=== PATIENT | male | born 1960 | race Caucasian/White ===

== ENCOUNTER 2022-11-14 18:56 | Emergency (ER) | payer MEDICARE ==
[2022-11-14 20:30] LABS: #Basophils 0.1 10x3/uL (0.0-0.2); #Eosinphils 0.4 10x3/uL (0.0-0.5); #Monocytes 0.9 10x3/uL (0.0-1.1); #Neutrophils 11.2 10x3/uL (1.5-8.4); %Basophils 0.5 % (0.0-2.0); %Eosinophils 2.8 % (0.0-6.0); %Lymphocytes 15.4 % (18.0-47.0); %Monocytes 5.8 % (0.0-10.0); %Neutrophils 75.2 % (40.0-75.0); Hemoglobin 10.4 g/dL (13.5-17.5); Mean Corpuscular HGB CONC 31.5 g/dL (32.0-36.0); Mean Corpuscular Hemoglobin 27.4 pg (27.0-33.0); Mean Corpuscular Volume 86.8 fl (81.2-95.1); Mean Platelet Volume 10.1 fl (7.4-10.4); Platelet Count 369 10x3/uL (150-450); RBC Distribution Width 13.9 % (11.5-14.5); White Blood Cell (WBC) Count 14.9 10x3/uL (3.5-10.5)
[2022-11-14 20:45] LABS: ALT (SGPT) 20 U/L (8-55); AST (SGOT) 23 U/L (5-34); Albumin 3.4 g/dL (3.4-4.8); Alkaline Phosphatase 122 U/L (40-110); Anion Gap 16 mmol/L (10-20); BUN (Urea Nitrogen) 37 mg/dL (8.4-25.7); Bilirubin, Total 0.3 mg/dL (0.2-1.2); Calc. Creatinine Clearance 0 mL/min (70-130); Calcium 9.4 mg/dL (7.8-10.44); Carbon Dioxide 23 mmol/L (23-31); Chloride 102 mmol/L (98-107); Estimated GFR 40; Glucose 269 mg/dL (80-115); Potassium 4.6 mmol/L (3.5-5.1); Protein, Total 6.4 g/dL (5.8-8.1); Sodium 136 mmol/L (136-145)
== END 2022-11-14 22:16 | disposition home or self-care (01) ==
LOC: CSHERS 18:56
DX: S91.001A Unspecified open wound, right ankle, initial encounter (principal); S91.002A Unspecified open wound, left ankle, initial encounter; S91.301A Unspecified open wound, right foot, initial encounter; S91.302A Unspecified open wound, left foot, initial encounter; L03.116 Cellulitis of left lower limb; X58.XXXA Exposure to other specified factors, initial encounter
CPT/HCPCS: 36415; 80053; 83605; 85025

== ENCOUNTER 2023-01-14 18:59 | Inpatient (IN) | payer MEDICARE, OTHER ==
[2023-01-14] MEDS ORDERED: Vancomycin 1 GM VIAL ONE (19:26)
[2023-01-14] MEDS ORDERED: Acetaminophen 500 MG TAB ONE (19:26)
[2023-01-14] MEDS ORDERED: Cefepime 2 GM VIAL ONE ×2 (19:27)
[2023-01-14 19:38] LABS: #Monocytes 0.8 10x3/uL (0.0-1.1); #Neutrophils 17.1 10x3/uL (1.5-8.4); %Basophils 0.2 % (0.0-2.0); %Eosinophils 0.1 % (0.0-6.0); %Lymphocytes 5.1 % (18.0-47.0); %Monocytes 4.1 % (0.0-10.0); %Neutrophils 89.8 % (40.0-75.0); Hemoglobin 9.1 g/dL (13.5-17.5); Mean Corpuscular Hemoglobin 26.8 pg (27.0-33.0); Mean Corpuscular Volume 81.2 fl (81.2-95.1); Mean Platelet Volume 9.4 fl (7.4-10.4); Platelet Count 343 10x3/uL (150-450); RBC Distribution Width 13.7 % (11.5-14.5); White Blood Cell (WBC) Count 19.1 10x3/uL (3.5-10.5)
[2023-01-14 19:41] LABS: ALT (SGPT) 8 U/L (8-55); AST (SGOT) 16 U/L (5-34); Albumin 2.5 g/dL (3.4-4.8); Alkaline Phosphatase 104 U/L (40-110); Anion Gap 13 mmol/L (10-20); BUN (Urea Nitrogen) 29 mg/dL (8.4-25.7); Bilirubin, Total 0.2 mg/dL (0.2-1.2); Calc. Creatinine Clearance 0 mL/min (70-130); Calcium 9.6 mg/dL (7.8-10.44); Carbon Dioxide 21 mmol/L (23-31); Chloride 103 mmol/L (98-107); Estimated GFR 66; Globulin 3.3 g/dL (2.4-3.5); Glucose 231 mg/dL (80-115); Magnesium 1.5 mg/dL (1.6-2.6); Potassium 3.4 mmol/L (3.5-5.1); Protein, Total 5.8 g/dL (5.8-8.1); Sodium 134 mmol/L (136-145)
[2023-01-15] MEDS ORDERED: Dextrose 5% in Water 1,000 ML IV PRN (00:20)
[2023-01-15] MEDS ORDERED: Glucagon 1 MG/ML KIT IM PRN (00:20)
[2023-01-15] MEDS ORDERED: Dextrose 50% Abboject 50 ML SYRINGE SLOW IVP PRN (00:20)
[2023-01-15] MEDS ORDERED: Potassium Chloride 20 MEQ TAB PO SCH ×2 (00:30→15:00)
[2023-01-15] MEDS ORDERED: Sodium Chloride 0.9% 1,000 ML IV SCH (00:30)
[2023-01-15] MEDS ORDERED: Potassium Chloride 20 MEQ TAB ONE ×2 (00:40→14:35)
[2023-01-15] MEDS ORDERED: Magnesium 2 GM/50 ML BAG (IN WATER) ONE ×2 (00:40→17:43)
[2023-01-15 02:01] LABS: Bilirubin Neg (Negative); Blood, Urine Negative (Negative); Clarity Clear (Clear); Glucose, Urine (Dipstick) 250 mg/dL (Negative); Ketone, Urine 5 mg/dL (Negative); Leukocyte Negative (Negative); Nitrite Negative (Negative); Protein, Urine (Dipstick) 100 mg/dl (Neg-Trace); Urobilinogen Normal mg/dL (Less than 2)
[2023-01-15 02:07] LABS: Bacteria/HPF None Seen HPF (None Seen); CAUTI Indications for Culture Fever or rigors; RBC/HPF 0-3 HPF (0-3); Squamous Epithelial 0-3 HPF (0-3); WBC/HPF 0-3 HPF (0-3)
[2023-01-15 02:08] LABS: Urine Culture Reflex No No
[2023-01-15 03:50] LABS: Hemoglobin 9.1 g/dL (13.5-17.5); Mean Corpuscular HGB CONC 32.6 g/dL (32.0-36.0); Mean Corpuscular Hemoglobin 26.5 pg (27.0-33.0); Mean Corpuscular Volume 81.3 fl (81.2-95.1); Mean Platelet Volume 9.1 fl (7.4-10.4); Platelet Count 372 10x3/uL (150-450); RBC Distribution Width 13.8 % (11.5-14.5); Red Blood Cell (RBC) Count 3.43 10x6/uL (4.32-5.72); White Blood Cell (WBC) Count 20.8 10x3/uL (3.5-10.5)
[2023-01-15 03:57] LABS: Anion Gap 14 mmol/L (10-20); BUN (Urea Nitrogen) 25 mg/dL (8.4-25.7); Calc. Creatinine Clearance 98 mL/min (70-130); Calcium 9.6 mg/dL (7.8-10.44); Carbon Dioxide 21 mmol/L (23-31); Chloride 102 mmol/L (98-107); Estimated GFR 81; Glucose 210 mg/dL (80-115); Magnesium 1.8 mg/dL (1.6-2.6); Potassium 3.4 mmol/L (3.5-5.1); Sodium 134 mmol/L (136-145)
[2023-01-15 04:18] LABS: MDiff Complete? YES
[2023-01-15 04:21] LABS: Band 22 % (5-11); Eosinophils 2 % (0-10); Lymphocytes 4 % (21-51); Monocytes 1 % (0-10); Neutrophil 71 % (42-75)
[2023-01-15 04:22] LABS: Platelet Adequacy Comment Appears Adequate; RBC Morph Comment Within Normal Limits
[2023-01-15] MEDS ORDERED: Insulin Regular 300 UNITS/3 ML VIAL ONE ×2 (07:56→17:32)
[2023-01-15] MEDS ORDERED: Cefepime 2 GM VIAL ONE (07:56)
[2023-01-15] MEDS ORDERED: Vancomycin 1 GM VIAL ONE (07:56)
[2023-01-15] MEDS: HumaLOG 300 UNITS/3 ML VIAL SC PRN ×2 (08:00→18:04)
[2023-01-15] MEDS: Cefepime 2 GM in Sodium Chloride 0.9% 100 ML IVPB SCH ×2 (08:00→21:24)
[2023-01-15] MEDS: Vancomycin HCl 1 GM in Sodium Chloride 0.9% 250 ML 250 ML IVPB SCH ×2 (08:00→21:24)
[2023-01-15] MEDS ORDERED: Heparin 5,000 UNITS/ML VIAL SC SCH (09:00)
[2023-01-15] MEDS ORDERED: Gabapentin 300 MG CAP ONE ×2 (09:58→17:45)
[2023-01-15] MEDS ORDERED: oxyCODONE 5 MG TAB ONE (09:58)
[2023-01-15] MEDS ORDERED: Heparin 5,000 UNITS/ML VIAL ONE (09:59)
[2023-01-15] MEDS: oxyCODONE 5 MG TAB PO PRN ×2 (10:00→21:23)
[2023-01-15] MEDS: Gabapentin 300 MG CAP PO SCH ×3 (10:04→21:22)
[2023-01-15] MEDS ORDERED: Magnevist 469MG/ML 20 ML VIAL ONE (11:24)
[2023-01-15] MEDS ORDERED: Electrolyte Replacement Protocol 1 EACH FS SCH (12:00)
[2023-01-15] MEDS ORDERED: Magnesium 2 GM/50 ML(in water) 2 GM in Premix Bag 1 BAG IVPB SCH (15:00)
[2023-01-15] MEDS: Lactated Ringer's 1,000 ML IV SCH (18:02)
[2023-01-15] MEDS ORDERED: Acetaminophen 325 MG TAB ONE (19:12)
[2023-01-15] MEDS: Acetaminophen 325 MG TAB PO PRN (19:43)
[2023-01-15 20:14] LABS: Potassium 3.8 mmol/L (3.5-5.1)
[2023-01-16] MEDS: Lactated Ringer's 1,000 ML IV SCH (04:50)
[2023-01-16 05:17] LABS: #Eosinphils 0.1 10x3/uL (0.0-0.5); #Monocytes 0.8 10x3/uL (0.0-1.1); #Neutrophils 13.1 10x3/uL (1.5-8.4); %Basophils 0.2 % (0.0-2.0); %Eosinophils 0.8 % (0.0-6.0); %Lymphocytes 9.6 % (18.0-47.0); %Monocytes 5.1 % (0.0-10.0); %Neutrophils 83.1 % (40.0-75.0); Hemoglobin 8.9 g/dL (13.5-17.5); Mean Corpuscular HGB CONC 33.3 g/dL (32.0-36.0); Mean Corpuscular Volume 80.9 fl (81.2-95.1); Mean Platelet Volume 9.2 fl (7.4-10.4); Platelet Count 341 10x3/uL (150-450); White Blood Cell (WBC) Count 15.8 10x3/uL (3.5-10.5)
[2023-01-16] MEDS: oxyCODONE 5 MG TAB PO PRN ×4 (05:17→21:13)
[2023-01-16 05:32] LABS: ALT (SGPT) 7 U/L (8-55); AST (SGOT) 12 U/L (5-34); Albumin 2.3 g/dL (3.4-4.8); Alkaline Phosphatase 111 U/L (40-110); Bilirubin, Direct 0.1 mg/dL (0.1-0.3); Bilirubin, Total 0.2 mg/dL (0.2-1.2); Protein, Total 5.5 g/dL (5.8-8.1)
[2023-01-16 05:36] LABS: Phosphorus 1.9 mg/dL (2.3-4.7)
[2023-01-16 05:38] LABS: ALT (SGPT) 9 U/L (8-55); AST (SGOT) 14 U/L (5-34); Albumin 2.3 g/dL (3.4-4.8); Alkaline Phosphatase 116 U/L (40-110); Anion Gap 13 mmol/L (10-20); BUN (Urea Nitrogen) 18 mg/dL (8.4-25.7); Bilirubin, Total 0.2 mg/dL (0.2-1.2); Calc. Creatinine Clearance 102 mL/min (70-130); Calcium 8.3 mg/dL (7.8-10.44); Carbon Dioxide 20 mmol/L (23-31); Chloride 102 mmol/L (98-107); Estimated GFR 85; Globulin 3.2 g/dL (2.4-3.5); Glucose 258 mg/dL (80-115); Iron 18 ug/dL (65-175); Iron Binding Capacity, Total 104 mcg/dL (261-462); Magnesium 1.8 mg/dL (1.6-2.6); Potassium 3.9 mmol/L (3.5-5.1); Protein, Total 5.5 g/dL (5.8-8.1); Sodium 131 mmol/L (136-145)
[2023-01-16 06:43] VITALS: BMI 33.3
[2023-01-16 07:43] LABS: Vancomycin, Trough 15.8 ug/mL
[2023-01-16] MEDS: Cefepime 2 GM in Sodium Chloride 0.9% 100 ML IVPB SCH ×2 (08:18→20:01)
[2023-01-16] MEDS ORDERED: Magnesium 2 GM/50 ML(in water) 2 GM in Premix Bag 1 BAG IVPB SCH (09:00)
[2023-01-16] MEDS: Vancomycin HCl 1 GM in Sodium Chloride 0.9% 250 ML 250 ML IVPB SCH ×2 (09:44→20:57)
[2023-01-16] MEDS: Gabapentin 300 MG CAP PO SCH ×3 (09:46→21:12)
[2023-01-16] MEDS ORDERED: Aspirin 81 mg Enteric Coated Tablet PO SCH (10:00)
[2023-01-16] MEDS ORDERED: Lantus 1000 UNITS/10 ML VIAL SC SCH (11:00)
[2023-01-16] MEDS ORDERED: Iopamidol 370 76% 150 ML VIAL FS ONE (11:25)
[2023-01-16] MEDS: PHOS-NAK 1 PKT PACK PO SCH ×2 (12:44→15:22)
[2023-01-16 12:53] LABS: Hemoglobin A1c 9.7 % (4.0-6.0)
[2023-01-16] MEDS: HumaLOG 300 UNITS/3 ML VIAL SC PRN ×3 (15:30→23:19)
[2023-01-16] MEDS: metroNIDAZOLE 500 MG in Premix Bag 1 BAG IVPB SCH ×2 (15:30→22:01)
[2023-01-16] MEDS ORDERED: Iron, Sodium Ferric Gluconate 125 MG in Sodium Chloride 0.9% 100 ML IVPB SCH (17:30)
[2023-01-16] MEDS: Atorvastatin Calcium 40 MG TAB PO SCH (21:13)
[2023-01-16] MEDS: Famotidine 20 MG TAB PO SCH (21:14)
[2023-01-17] MEDS: oxyCODONE 5 MG TAB PO PRN ×3 (04:29→20:02)
[2023-01-17 05:00] LABS: #Basophils 0.1 10x3/uL (0.0-0.2); #Eosinphils 0.1 10x3/uL (0.0-0.5); #Monocytes 0.9 10x3/uL (0.0-1.1); #Neutrophils 13.8 10x3/uL (1.5-8.4); %Basophils 0.3 % (0.0-2.0); %Eosinophils 0.7 % (0.0-6.0); %Lymphocytes 10.5 % (18.0-47.0); %Monocytes 5.5 % (0.0-10.0); %Neutrophils 81.8 % (40.0-75.0); Hemoglobin 9.3 g/dL (13.5-17.5); Mean Corpuscular HGB CONC 32.3 g/dL (32.0-36.0); Mean Corpuscular Hemoglobin 26.3 pg (27.0-33.0); Mean Corpuscular Volume 81.6 fl (81.2-95.1); Mean Platelet Volume 9.2 fl (7.4-10.4); Platelet Count 336 10x3/uL (150-450); RBC Distribution Width 14.1 % (11.5-14.5); Red Blood Cell (RBC) Count 3.53 10x6/uL (4.32-5.72); White Blood Cell (WBC) Count 16.9 10x3/uL (3.5-10.5)
[2023-01-17 05:11] LABS: ALT (SGPT) 7 U/L (8-55); AST (SGOT) 11 U/L (5-34); Albumin 2.2 g/dL (3.4-4.8); Alkaline Phosphatase 100 U/L (40-110); Anion Gap 12 mmol/L (10-20); BUN (Urea Nitrogen) 16 mg/dL (8.4-25.7); Bilirubin, Total 0.2 mg/dL (0.2-1.2); Calc. Creatinine Clearance 116 mL/min (70-130); Calcium 8.2 mg/dL (7.8-10.44); Carbon Dioxide 23 mmol/L (23-31); Chloride 97 mmol/L (98-107); Estimated GFR 88; Globulin 3.3 g/dL (2.4-3.5); Glucose 217 mg/dL (80-115); Magnesium 1.8 mg/dL (1.6-2.6); Potassium 3.7 mmol/L (3.5-5.1); Protein, Total 5.5 g/dL (5.8-8.1); Sodium 128 mmol/L (136-145)
[2023-01-17 05:13] LABS: Cholesterol 68 mg/dl (< 200 Desired); HDL Cholesterol 17 mg/dL (>60 Neg Risk); LDL Cholesterol, Calculated 30 mg/dL; Phosphorus 2.1 mg/dL (2.3-4.7); Triglycerides 107 mg/dL (Less than 150)
[2023-01-17] MEDS: metroNIDAZOLE 500 MG in Premix Bag 1 BAG IVPB SCH (06:08)
[2023-01-17] MEDS: HumaLOG 300 UNITS/3 ML VIAL SC PRN ×3 (06:20→21:46)
[2023-01-17] MEDS: Vancomycin HCl 1 GM in Sodium Chloride 0.9% 250 ML 250 ML IVPB SCH (08:13)
[2023-01-17] MEDS: Cefepime 2 GM in Sodium Chloride 0.9% 100 ML IVPB SCH (08:15)
[2023-01-17] MEDS: Gabapentin 300 MG CAP PO SCH ×3 (08:15→20:03)
[2023-01-17] MEDS: Famotidine 20 MG TAB PO SCH ×2 (08:16→20:03)
[2023-01-17] MEDS: Aspirin 81 mg Enteric Coated Tablet PO SCH (08:16)
[2023-01-17] MEDS ORDERED: Lantus 1000 UNITS/10 ML VIAL SC SCH (09:00)
[2023-01-17] MEDS ORDERED: Magnesium 2 GM/50 ML(in water) 2 GM in Premix Bag 1 BAG IVPB SCH (09:00)
[2023-01-17] MEDS ORDERED: Magnevist 469MG/ML 20 ML VIAL ONE (13:34)
[2023-01-17] MEDS: cefTRIAXone\\ROCEPHIN 2 GM in Sodium Chloride 0.9% 100 ML IVPB SCH (14:00)
[2023-01-17] MEDS: metroNIDAZOLE 500 MG TAB PO SCH ×2 (15:52→20:07)
[2023-01-17] MEDS: Atorvastatin Calcium 40 MG TAB PO SCH (20:02)
[2023-01-17] MEDS: hydrALAZINE 20 MG/ML VIAL SLOW IVP PRN (20:04)
[2023-01-17] MEDS: Lantus 1000 UNITS/10 ML VIAL SC SCH (21:46)
[2023-01-17] MEDS: Acetaminophen 325 MG TAB PO PRN (23:50)
[2023-01-18 04:55] LABS: #Eosinphils 0.1 10x3/uL (0.0-0.5); #Monocytes 1.2 10x3/uL (0.0-1.1); #Neutrophils 16.5 10x3/uL (1.5-8.4); %Basophils 0.2 % (0.0-2.0); %Eosinophils 0.4 % (0.0-6.0); %Lymphocytes 8.8 % (18.0-47.0); %Neutrophils 83.2 % (40.0-75.0); Hemoglobin 8.7 g/dL (13.5-17.5); Mean Corpuscular HGB CONC 33.1 g/dL (32.0-36.0); Mean Corpuscular Hemoglobin 26.6 pg (27.0-33.0); Mean Corpuscular Volume 80.4 fl (81.2-95.1); Mean Platelet Volume 9.1 fl (7.4-10.4); Platelet Count 340 10x3/uL (150-450); Red Blood Cell (RBC) Count 3.27 10x6/uL (4.32-5.72); White Blood Cell (WBC) Count 19.8 10x3/uL (3.5-10.5)
[2023-01-18 05:10] LABS: ALT (SGPT) 7 U/L (8-55); AST (SGOT) 10 U/L (5-34); Albumin 2.1 g/dL (3.4-4.8); Alkaline Phosphatase 106 U/L (40-110); Anion Gap 12 mmol/L (10-20); BUN (Urea Nitrogen) 19 mg/dL (8.4-25.7); Bilirubin, Total Less than 0.2 mg/dL (0.2-1.2); Calc. Creatinine Clearance 104 mL/min (70-130); Carbon Dioxide 23 mmol/L (23-31); Chloride 98 mmol/L (98-107); Estimated GFR 77; Globulin 3.2 g/dL (2.4-3.5); Glucose 240 mg/dL (80-115); Magnesium 1.8 mg/dL (1.6-2.6); Potassium 3.6 mmol/L (3.5-5.1); Protein, Total 5.3 g/dL (5.8-8.1); Sodium 129 mmol/L (136-145)
[2023-01-18] MEDS: Sodium Chloride 0.9% 1,000 ML IV SCH ×2 (08:11→18:23)
[2023-01-18] MEDS ORDERED: Magnesium 2 GM/50 ML(in water) 2 GM in Premix Bag 1 BAG IVPB SCH (09:00)
[2023-01-18] MEDS: Gabapentin 300 MG CAP PO SCH ×3 (09:22→20:50)
[2023-01-18] MEDS: oxyCODONE 5 MG TAB PO PRN (09:22)
[2023-01-18] MEDS: Famotidine 20 MG TAB PO SCH ×2 (09:22→20:51)
[2023-01-18] MEDS: Ferrous Sulfate 325 MG TAB PO SCH (09:22)
[2023-01-18] MEDS: Aspirin 81 mg Enteric Coated Tablet PO SCH (09:23)
[2023-01-18] MEDS: metroNIDAZOLE 500 MG TAB PO SCH (09:26)
[2023-01-18] MEDS ORDERED: Morphine 2 MG/ML VIAL SLOW IVP PRN (10:22)
[2023-01-18] MEDS: cefTRIAXone\\ROCEPHIN 2 GM in Sodium Chloride 0.9% 100 ML IVPB SCH (12:16)
[2023-01-18] MEDS: metroNIDAZOLE 500 MG in Premix Bag 1 BAG IVPB SCH ×2 (14:31→22:05)
[2023-01-18] MEDS: Morphine 4 MG/ML VIAL SLOW IVP PRN ×2 (15:35→20:52)
[2023-01-18] MEDS: HYDROcodone/Acetaminophen 5/325 mg Tablet PO PRN (19:04)
[2023-01-18] MEDS: Atorvastatin Calcium 40 MG TAB PO SCH (20:51)
[2023-01-18] MEDS: Lantus 1000 UNITS/10 ML VIAL SC SCH (20:52)
[2023-01-18] MEDS: HumaLOG 300 UNITS/3 ML VIAL SC PRN (22:05)
[2023-01-19] MEDS: Sodium Chloride 0.9% 1,000 ML IV SCH ×2 (04:00→13:01)
[2023-01-19] MEDS: metroNIDAZOLE 500 MG in Premix Bag 1 BAG IVPB SCH ×3 (05:43→23:42)
[2023-01-19] MEDS: Morphine 4 MG/ML VIAL SLOW IVP PRN ×2 (05:44→12:58)
[2023-01-19 06:06] LABS: Hemoglobin 8.7 g/dL (13.5-17.5); MDiff Complete? YES; Mean Corpuscular HGB CONC 31.9 g/dL (32.0-36.0); Mean Corpuscular Hemoglobin 26.2 pg (27.0-33.0); Mean Corpuscular Volume 82.2 fl (81.2-95.1); Mean Platelet Volume 9.2 fl (7.4-10.4); Platelet Count 385 10x3/uL (150-450); RBC Distribution Width 14.3 % (11.5-14.5); Red Blood Cell (RBC) Count 3.32 10x6/uL (4.32-5.72); White Blood Cell (WBC) Count 20.3 10x3/uL (3.5-10.5)
[2023-01-19 06:24] LABS: ALT (SGPT) 10 U/L (8-55); AST (SGOT) 14 U/L (5-34); Albumin 2.2 g/dL (3.4-4.8); Alkaline Phosphatase 108 U/L (40-110); Anion Gap 11 mmol/L (10-20); BUN (Urea Nitrogen) 17 mg/dL (8.4-25.7); Bilirubin, Total 0.2 mg/dL (0.2-1.2); Calc. Creatinine Clearance 102 mL/min (70-130); Calcium 8.2 mg/dL (7.8-10.44); Carbon Dioxide 24 mmol/L (23-31); Chloride 98 mmol/L (98-107); Estimated GFR 76; Globulin 3.4 g/dL (2.4-3.5); Glucose 214 mg/dL (80-115); Potassium 3.4 mmol/L (3.5-5.1); Protein, Total 5.6 g/dL (5.8-8.1); Sodium 130 mmol/L (136-145)
[2023-01-19 06:30] LABS: Hypochromia SLIGHT = 6-15 cells (100X) (0-5/hpf); Lymphocytes 4 % (21-51); Monocytes 4 % (0-10); Neutrophil 92 % (42-75); Platelet Adequacy Comment Appears Adequate
[2023-01-19] MEDS: HumaLOG 300 UNITS/3 ML VIAL SC PRN ×4 (07:00→21:33)
[2023-01-19] MEDS ORDERED: Potassium Chloride 20 MEQ TAB PO SCH (09:00)
[2023-01-19] MEDS: Aspirin 81 mg Enteric Coated Tablet PO SCH (09:09)
[2023-01-19] MEDS: Gabapentin 300 MG CAP PO SCH ×3 (09:09→21:30)
[2023-01-19] MEDS: HYDROcodone/Acetaminophen 5/325 mg Tablet PO PRN ×3 (09:10→21:31)
[2023-01-19] MEDS: Ferrous Sulfate 325 MG TAB PO SCH (09:11)
[2023-01-19] MEDS: Famotidine 20 MG TAB PO SCH ×2 (09:11→21:30)
[2023-01-19] MEDS: cefTRIAXone\\ROCEPHIN 2 GM in Sodium Chloride 0.9% 100 ML IVPB SCH (13:01)
[2023-01-19 13:16] LABS: Potassium 4.3 mmol/L (3.5-5.1)
[2023-01-19] MEDS: Morphine 2 MG/ML VIAL SLOW IVP PRN (17:19)
[2023-01-19] MEDS: Atorvastatin Calcium 40 MG TAB PO SCH (21:30)
[2023-01-19] MEDS: Lantus 1000 UNITS/10 ML VIAL SC SCH (21:32)
[2023-01-19] MEDS ORDERED: Communication Order-Pharmacy FS SCH (22:00)
[2023-01-20] MEDS: Morphine 2 MG/ML VIAL SLOW IVP PRN ×2 (00:55→17:04)
[2023-01-20] MEDS: Sodium Chloride 0.9% 1,000 ML IV SCH ×4 (02:44→21:14)
[2023-01-20 04:28] LABS: #Basophils 0.1 10x3/uL (0.0-0.2); #Eosinphils 0.1 10x3/uL (0.0-0.5); #Monocytes 1.3 10x3/uL (0.0-1.1); #Neutrophils 13.3 10x3/uL (1.5-8.4); %Basophils 0.3 % (0.0-2.0); %Eosinophils 0.8 % (0.0-6.0); %Lymphocytes 10.1 % (18.0-47.0); %Monocytes 7.8 % (0.0-10.0); %Neutrophils 79.3 % (40.0-75.0); Hemoglobin 8.1 g/dL (13.5-17.5); Mean Corpuscular HGB CONC 32.1 g/dL (32.0-36.0); Mean Corpuscular Hemoglobin 26.2 pg (27.0-33.0); Mean Corpuscular Volume 81.6 fl (81.2-95.1); Mean Platelet Volume 8.7 fl (7.4-10.4); Platelet Count 379 10x3/uL (150-450); RBC Distribution Width 14.2 % (11.5-14.5); Red Blood Cell (RBC) Count 3.09 10x6/uL (4.32-5.72); White Blood Cell (WBC) Count 16.7 10x3/uL (3.5-10.5)
[2023-01-20 04:50] LABS: Phosphorus 2.1 mg/dL (2.3-4.7)
[2023-01-20 04:57] LABS: ALT (SGPT) 9 U/L (8-55); AST (SGOT) 12 U/L (5-34); Albumin 2.1 g/dL (3.4-4.8); Alkaline Phosphatase 107 U/L (40-110); Anion Gap 12 mmol/L (10-20); BUN (Urea Nitrogen) 19 mg/dL (8.4-25.7); Bilirubin, Total Less than 0.2 mg/dL (0.2-1.2); Calc. Creatinine Clearance 113 mL/min (70-130); Carbon Dioxide 24 mmol/L (23-31); Chloride 97 mmol/L (98-107); Estimated GFR 86; Globulin 3.3 g/dL (2.4-3.5); Glucose 225 mg/dL (80-115); Magnesium 1.5 mg/dL (1.6-2.6); Potassium 3.9 mmol/L (3.5-5.1); Protein, Total 5.4 g/dL (5.8-8.1); Sodium 129 mmol/L (136-145)
[2023-01-20] MEDS: metroNIDAZOLE 500 MG in Premix Bag 1 BAG IVPB SCH ×3 (05:41→21:16)
[2023-01-20] MEDS ORDERED: Magnesium 2 GM/50 ML(in water) 2 GM in Premix Bag 1 BAG IVPB SCH (06:00)
[2023-01-20] MEDS ORDERED: Sodium Chloride 0.9% 1,000 ML IV SCH (07:00)
[2023-01-20] MEDS: Ferrous Sulfate 325 MG TAB PO SCH (07:01)
[2023-01-20] MEDS: Aspirin 81 mg Enteric Coated Tablet PO SCH (07:02)
[2023-01-20] MEDS: Famotidine 20 MG TAB PO SCH ×2 (07:02→21:15)
[2023-01-20] MEDS: Gabapentin 300 MG CAP PO SCH ×3 (07:03→21:15)
[2023-01-20] MEDS ORDERED: TICAGRELOR 90 MG TABLET PO SCH (08:00)
[2023-01-20] MEDS ORDERED: Lidocaine 1% (PF) 30 ML VIAL ONE (09:43)
[2023-01-20] MEDS ORDERED: Nitroglycerin 50 MG/250 ML BOT 0 ML ONE (09:43)
[2023-01-20] MEDS ORDERED: Heparin 10,000 UNITS/ 10 ML VIAL ONE (09:44)
[2023-01-20] MEDS ORDERED: Midazolam HCl 2 mg/2 ml Vial ONE ×2 (09:58→11:59)
[2023-01-20] MEDS ORDERED: fentaNYL 50 mcg/mL 1 mL Vial ONE ×3 (09:58→12:09)
[2023-01-20] MEDS ORDERED: Iopamidol 300 61% 100 ML VIAL FS ONE (11:04)
[2023-01-20] MEDS: cefTRIAXone\\ROCEPHIN 2 GM in Sodium Chloride 0.9% 100 ML IVPB SCH (14:23)
[2023-01-20] MEDS: HumaLOG 300 UNITS/3 ML VIAL SC PRN (17:06)
[2023-01-20] MEDS: HYDROcodone/Acetaminophen 5/325 mg Tablet PO PRN ×2 (18:27→21:15)
[2023-01-20] MEDS: Lantus 1000 UNITS/10 ML VIAL SC SCH (21:24)
[2023-01-21] MEDS: HYDROcodone/Acetaminophen 5/325 mg Tablet PO PRN ×3 (04:15→17:52)
[2023-01-21] MEDS: Sodium Chloride 0.9% 1,000 ML IV SCH ×2 (04:18→09:53)
[2023-01-21 04:48] LABS: ALT (SGPT) 8 U/L (8-55); AST (SGOT) 12 U/L (5-34); Albumin 2.2 g/dL (3.4-4.8); Alkaline Phosphatase 105 U/L (40-110); Anion Gap 12 mmol/L (10-20); BUN (Urea Nitrogen) 13 mg/dL (8.4-25.7); Bilirubin, Total 0.2 mg/dL (0.2-1.2); Calc. Creatinine Clearance 117 mL/min (70-130); Calcium 8.1 mg/dL (7.8-10.44); Carbon Dioxide 24 mmol/L (23-31); Chloride 94 mmol/L (98-107); Estimated GFR 89; Globulin 3.6 g/dL (2.4-3.5); Glucose 310 mg/dL (80-115); Magnesium 1.6 mg/dL (1.6-2.6); Potassium 3.9 mmol/L (3.5-5.1); Protein, Total 5.8 g/dL (5.8-8.1); Sodium 126 mmol/L (136-145)
[2023-01-21 04:59] LABS: Hemoglobin 8.4 g/dL (13.5-17.5); Mean Corpuscular HGB CONC 32.4 g/dL (32.0-36.0); Mean Corpuscular Hemoglobin 26.4 pg (27.0-33.0); Mean Corpuscular Volume 81.4 fl (81.2-95.1); Mean Platelet Volume 8.9 fl (7.4-10.4); Platelet Count 503 10x3/uL (150-450); RBC Distribution Width 14.3 % (11.5-14.5); Red Blood Cell (RBC) Count 3.18 10x6/uL (4.32-5.72); White Blood Cell (WBC) Count 21.2 10x3/uL (3.5-10.5)
[2023-01-21 05:32] LABS: MDiff Complete? YES
[2023-01-21 06:22] LABS: Band 2 % (5-11); Lymphocytes 5 % (21-51); Monocytes 2 % (0-10); Neutrophil 91 % (42-75)
[2023-01-21 06:25] LABS: Hypochromia SLIGHT = 6-15 cells (100X) (0-5/hpf); Macrocytosis SLIGHT = 6-15 cells (100X) (0-5/hpf); Microcytosis SLIGHT = 6-15 cells (100X) (0-5/hpf); Ovalocytes SLIGHT = 2-5 cells (100X) (0-1/hpf); Platelet Adequacy Comment Appears Adequate
[2023-01-21] MEDS: metroNIDAZOLE 500 MG in Premix Bag 1 BAG IVPB SCH ×3 (06:45→21:20)
[2023-01-21] MEDS ORDERED: Magnesium 2 GM/50 ML(in water) 2 GM in Premix Bag 1 BAG IVPB SCH (08:00)
[2023-01-21] MEDS: Clopidogrel Bisulfate 75 MG TAB PO SCH (09:54)
[2023-01-21] MEDS: Gabapentin 300 MG CAP PO SCH ×3 (09:54→20:23)
[2023-01-21] MEDS: Aspirin 81 mg Enteric Coated Tablet PO SCH (09:54)
[2023-01-21] MEDS: Famotidine 20 MG TAB PO SCH ×2 (09:55→20:23)
[2023-01-21] MEDS: Ferrous Sulfate 325 MG TAB PO SCH (09:57)
[2023-01-21] MEDS: Morphine 2 MG/ML VIAL SLOW IVP PRN (11:43)
[2023-01-21] MEDS: Acetaminophen 325 MG TAB PO PRN (12:10)
[2023-01-21] MEDS: HumaLOG 300 UNITS/3 ML VIAL SC PRN ×2 (12:11→17:53)
[2023-01-21] MEDS: cefTRIAXone\\ROCEPHIN 2 GM in Sodium Chloride 0.9% 100 ML IVPB SCH (12:16)
[2023-01-21] MEDS: hydrALAZINE 20 MG/ML VIAL SLOW IVP PRN (17:51)
[2023-01-21] MEDS ORDERED: Lantus 1000 UNITS/10 ML VIAL SC SCH (21:00)
[2023-01-22] MEDS: HYDROcodone/Acetaminophen 5/325 mg Tablet PO PRN ×2 (00:11→06:24)
[2023-01-22 04:04] LABS: ALT (SGPT) 8 U/L (8-55); AST (SGOT) 14 U/L (5-34); Albumin 2.1 g/dL (3.4-4.8); Alkaline Phosphatase 99 U/L (40-110); Anion Gap 10 mmol/L (10-20); BUN (Urea Nitrogen) 13 mg/dL (8.4-25.7); Bilirubin, Total 0.2 mg/dL (0.2-1.2); Calc. Creatinine Clearance 123 mL/min (70-130); Calcium 8.2 mg/dL (7.8-10.44); Carbon Dioxide 26 mmol/L (23-31); Chloride 98 mmol/L (98-107); Estimated GFR 95; Globulin 3.5 g/dL (2.4-3.5); Glucose 256 mg/dL (80-115); Protein, Total 5.6 g/dL (5.8-8.1); Sodium 130 mmol/L (136-145)
[2023-01-22 04:10] LABS: #Basophils 0.1 10x3/uL (0.0-0.2); #Eosinphils 0.2 10x3/uL (0.0-0.5); #Monocytes 1.2 10x3/uL (0.0-1.1); #Neutrophils 13.6 10x3/uL (1.5-8.4); %Basophils 0.3 % (0.0-2.0); %Eosinophils 0.9 % (0.0-6.0); %Monocytes 6.8 % (0.0-10.0); %Neutrophils 78.6 % (40.0-75.0); Hemoglobin 7.9 g/dL (13.5-17.5); Mean Corpuscular HGB CONC 32.6 g/dL (32.0-36.0); Mean Corpuscular Hemoglobin 26.9 pg (27.0-33.0); Mean Corpuscular Volume 82.3 fl (81.2-95.1); Mean Platelet Volume 8.7 fl (7.4-10.4); Platelet Count 499 10x3/uL (150-450); RBC Distribution Width 14.4 % (11.5-14.5); Red Blood Cell (RBC) Count 2.94 10x6/uL (4.32-5.72); White Blood Cell (WBC) Count 17.3 10x3/uL (3.5-10.5)
[2023-01-22] MEDS ORDERED: fentaNYL 50 mcg/mL 1 mL Vial ONE (06:41)
[2023-01-22] MEDS ORDERED: PROPOFOL 20 ML ONE (06:41)
[2023-01-22] MEDS ORDERED: Lidocaine 1% PF 5 ML VIAL ONE (06:41)
[2023-01-22] MEDS: metroNIDAZOLE 500 MG in Premix Bag 1 BAG IVPB SCH ×3 (07:12→22:12)
[2023-01-22] MEDS ORDERED: Vasopressin 20 UNITS/ML VIAL ONE (07:18)
[2023-01-22] MEDS ORDERED: HYDROmorphone 0.5 MG/0.5 ML SYRINGE ONE ×4 (07:18→10:46)
[2023-01-22] MEDS ORDERED: Phenylephrine 10 MG/ML VIAL ONE (07:18)
[2023-01-22] MEDS: Ferrous Sulfate 325 MG TAB PO SCH (08:00)
[2023-01-22] MEDS ORDERED: Dexamethasone 4 mg/ml Vial ONE (08:13)
[2023-01-22] MEDS ORDERED: Ondansetron PF 4 MG/2 ML Vial ONE (08:13)
[2023-01-22] MEDS ORDERED: Fentanyl 250 MCG/5 ML VIAL ONE (08:44)
[2023-01-22] MEDS: Gabapentin 300 MG CAP PO SCH ×3 (09:00→22:11)
[2023-01-22] MEDS: Aspirin 81 mg Enteric Coated Tablet PO SCH (09:00)
[2023-01-22] MEDS: Famotidine 20 MG TAB PO SCH ×2 (09:00→22:11)
[2023-01-22] MEDS: Clopidogrel Bisulfate 75 MG TAB PO SCH (09:00)
[2023-01-22] MEDS ORDERED: Meperidine HCl/PF 25 MG/ML VIAL ONE (10:05)
[2023-01-22] MEDS: Sodium Chloride 0.9% 1,000 ML IV SCH (10:30)
[2023-01-22] MEDS ORDERED: Acetaminophen 500 MG TAB PO SCH (11:00)
[2023-01-22] MEDS: cefTRIAXone\\ROCEPHIN 2 GM in Sodium Chloride 0.9% 100 ML IVPB SCH (12:25)
[2023-01-22] MEDS: Morphine 2 MG/ML VIAL SLOW IVP PRN ×2 (12:29→16:00)
[2023-01-22] MEDS: Acetaminophen 500 MG TAB PO SCH ×2 (17:30→22:10)
[2023-01-22] MEDS: HYDROcodone/Acetaminophen 7.5/325 mg Tablet PO PRN (19:31)
[2023-01-22] MEDS: ALPRAZolam 0.25 MG TAB PO PRN (19:32)
[2023-01-22] MEDS: Tamsulosin HCl 0.4 MG CAP PO SCH (22:11)
[2023-01-22] MEDS: HumaLOG 300 UNITS/3 ML VIAL SC PRN (22:23)
[2023-01-22] MEDS: Lantus 1000 UNITS/10 ML VIAL SC SCH (22:23)
[2023-01-23] MEDS: traMADol HCl 50 MG TAB PO PRN (01:09)
[2023-01-23 04:47] LABS: ALT (SGPT) 8 U/L (8-55); AST (SGOT) 13 U/L (5-34); Albumin 2.1 g/dL (3.4-4.8); Alkaline Phosphatase 89 U/L (40-110); Anion Gap 12 mmol/L (10-20); BUN (Urea Nitrogen) 20 mg/dL (8.4-25.7); Bilirubin, Total Less than 0.2 mg/dL (0.2-1.2); Calc. Creatinine Clearance 99 mL/min (70-130); Calcium 8.1 mg/dL (7.8-10.44); Carbon Dioxide 25 mmol/L (23-31); Chloride 97 mmol/L (98-107); Estimated GFR 73; Globulin 3.5 g/dL (2.4-3.5); Glucose 344 mg/dL (80-115); Potassium 4.1 mmol/L (3.5-5.1); Protein, Total 5.6 g/dL (5.8-8.1); Sodium 130 mmol/L (136-145)
[2023-01-23 05:00] LABS: #Neutrophils 14.6 10x3/uL (1.5-8.4); %Basophils 0.2 % (0.0-2.0); %Eosinophils 0.1 % (0.0-6.0); %Lymphocytes 8.3 % (18.0-47.0); %Monocytes 5.6 % (0.0-10.0); %Neutrophils 84.4 % (40.0-75.0); Hemoglobin 8.3 g/dL (13.5-17.5); Mean Corpuscular HGB CONC 33.2 g/dL (32.0-36.0); Mean Corpuscular Volume 81.4 fl (81.2-95.1); Mean Platelet Volume 8.6 fl (7.4-10.4); Platelet Count 626 10x3/uL (150-450); RBC Distribution Width 14.3 % (11.5-14.5); Red Blood Cell (RBC) Count 3.07 10x6/uL (4.32-5.72); White Blood Cell (WBC) Count 17.3 10x3/uL (3.5-10.5)
[2023-01-23] MEDS: HYDROcodone/Acetaminophen 7.5/325 mg Tablet PO PRN ×4 (06:33→20:34)
[2023-01-23] MEDS: metroNIDAZOLE 500 MG in Premix Bag 1 BAG IVPB SCH (06:34)
[2023-01-23] MEDS: HumaLOG 300 UNITS/3 ML VIAL SC PRN ×2 (06:36→20:36)
[2023-01-23] MEDS: Ferrous Sulfate 325 MG TAB PO SCH (08:40)
[2023-01-23] MEDS: Gabapentin 300 MG CAP PO SCH ×3 (09:39→20:33)
[2023-01-23] MEDS: Famotidine 20 MG TAB PO SCH ×2 (09:40→20:33)
[2023-01-23] MEDS: Clopidogrel Bisulfate 75 MG TAB PO SCH (09:40)
[2023-01-23] MEDS: Aspirin 81 mg Enteric Coated Tablet PO SCH (09:41)
[2023-01-23] MEDS: Acetaminophen 500 MG TAB PO SCH ×4 (09:41→21:00)
[2023-01-23] MEDS: Sodium Chloride 0.9% 1,000 ML IV SCH (10:39)
[2023-01-23] MEDS: cefTRIAXone\\ROCEPHIN 2 GM in Sodium Chloride 0.9% 100 ML IVPB SCH (13:12)
[2023-01-23] MEDS: Tamsulosin HCl 0.4 MG CAP PO SCH (20:33)
[2023-01-23] MEDS: Lantus 1000 UNITS/10 ML VIAL SC SCH (20:35)
[2023-01-24] MEDS: HYDROcodone/Acetaminophen 7.5/325 mg Tablet PO PRN (00:43)
[2023-01-24] MEDS: Morphine 2 MG/ML VIAL SLOW IVP PRN (01:46)
[2023-01-24] MEDS ORDERED: Ketorolac Tromethamine 30 MG/ML VIAL IVP SCH (03:00)
[2023-01-24 05:54] LABS: #Basophils 0.1 10x3/uL (0.0-0.2); #Eosinphils 0.2 10x3/uL (0.0-0.5); #Monocytes 0.9 10x3/uL (0.0-1.1); %Basophils 0.4 % (0.0-2.0); %Eosinophils 1.1 % (0.0-6.0); %Lymphocytes 20.1 % (18.0-47.0); %Monocytes 6.4 % (0.0-10.0); %Neutrophils 70.8 % (40.0-75.0); Hemoglobin 8.1 g/dL (13.5-17.5); Mean Corpuscular HGB CONC 32.5 g/dL (32.0-36.0); Mean Corpuscular Hemoglobin 26.9 pg (27.0-33.0); Mean Corpuscular Volume 82.7 fl (81.2-95.1); Mean Platelet Volume 8.4 fl (7.4-10.4); Platelet Count 647 10x3/uL (150-450); RBC Distribution Width 14.7 % (11.5-14.5); Red Blood Cell (RBC) Count 3.01 10x6/uL (4.32-5.72); White Blood Cell (WBC) Count 14.1 10x3/uL (3.5-10.5)
[2023-01-24 06:02] LABS: ALT (SGPT) 9 U/L (8-55); AST (SGOT) 18 U/L (5-34); Albumin 2.1 g/dL (3.4-4.8); Alkaline Phosphatase 91 U/L (40-110); Anion Gap 14 mmol/L (10-20); BUN (Urea Nitrogen) 20 mg/dL (8.4-25.7); Bilirubin, Total Less than 0.2 mg/dL (0.2-1.2); Calc. Creatinine Clearance 100 mL/min (70-130); Calcium 8.1 mg/dL (7.8-10.44); Carbon Dioxide 25 mmol/L (23-31); Chloride 98 mmol/L (98-107); Estimated GFR 74; Globulin 3.5 g/dL (2.4-3.5); Glucose 227 mg/dL (80-115); Potassium 4.7 mmol/L (3.5-5.1); Protein, Total 5.6 g/dL (5.8-8.1); Sodium 132 mmol/L (136-145)
[2023-01-24] MEDS: HumaLOG 300 UNITS/3 ML VIAL SC PRN ×3 (07:30→20:36)
[2023-01-24] MEDS: Ferrous Sulfate 325 MG TAB PO SCH (08:51)
[2023-01-24] MEDS: Acetaminophen 500 MG TAB PO SCH ×4 (08:52→20:34)
[2023-01-24] MEDS: Aspirin 81 mg Enteric Coated Tablet PO SCH (08:52)
[2023-01-24] MEDS: Clopidogrel Bisulfate 75 MG TAB PO SCH (08:52)
[2023-01-24] MEDS: Gabapentin 300 MG CAP PO SCH ×3 (08:53→20:35)
[2023-01-24] MEDS: Famotidine 20 MG TAB PO SCH ×2 (08:53→20:35)
[2023-01-24] MEDS ORDERED: Lantus 1000 UNITS/10 ML VIAL SC SCH (09:00)
[2023-01-24] MEDS ORDERED: GoLYTELY 4,000 ml Bottle PO SCH (11:15)
[2023-01-24] MEDS: Sodium Chloride 0.9% 1,000 ML IV SCH (11:54)
[2023-01-24] MEDS: cefTRIAXone\\ROCEPHIN 2 GM in Sodium Chloride 0.9% 100 ML IVPB SCH (12:01)
[2023-01-24] MEDS ORDERED: Triple Antibiotic Ointment 30 GM TUBE TOP SCH (14:30)
[2023-01-24] MEDS: traMADol HCl 50 MG TAB PO PRN (16:29)
[2023-01-24] MEDS: Tamsulosin HCl 0.4 MG CAP PO SCH (20:35)
[2023-01-24] MEDS: Lantus 1000 UNITS/10 ML VIAL SC SCH (20:36)
[2023-01-25] MEDS: Morphine 2 MG/ML VIAL SLOW IVP PRN ×2 (05:00→16:03)
[2023-01-25 05:41] LABS: ALT (SGPT) 11 U/L (8-55); AST (SGOT) 24 U/L (5-34); Albumin 2.3 g/dL (3.4-4.8); Alkaline Phosphatase 94 U/L (40-110); Anion Gap 13 mmol/L (10-20); BUN (Urea Nitrogen) 21 mg/dL (8.4-25.7); Bilirubin, Total 0.2 mg/dL (0.2-1.2); Calc. Creatinine Clearance 115 mL/min (70-130); Calcium 8.6 mg/dL (7.8-10.44); Carbon Dioxide 29 mmol/L (23-31); Chloride 99 mmol/L (98-107); Estimated GFR 87; Globulin 4.2 g/dL (2.4-3.5); Glucose 169 mg/dL (80-115); Potassium 4.8 mmol/L (3.5-5.1); Protein, Total 6.5 g/dL (5.8-8.1); Sodium 136 mmol/L (136-145)
[2023-01-25 05:50] LABS: #Basophils 0.1 10x3/uL (0.0-0.2); #Eosinphils 0.2 10x3/uL (0.0-0.5); #Monocytes 0.9 10x3/uL (0.0-1.1); #Neutrophils 10.3 10x3/uL (1.5-8.4); %Basophils 0.5 % (0.0-2.0); %Eosinophils 1.4 % (0.0-6.0); %Lymphocytes 16.4 % (18.0-47.0); %Monocytes 6.3 % (0.0-10.0); %Neutrophils 74.2 % (40.0-75.0); Hemoglobin 9.4 g/dL (13.5-17.5); Mean Corpuscular HGB CONC 32.2 g/dL (32.0-36.0); Mean Corpuscular Hemoglobin 27.2 pg (27.0-33.0); Mean Corpuscular Volume 84.6 fl (81.2-95.1); Mean Platelet Volume 8.3 fl (7.4-10.4); Platelet Count 931 10x3/uL (150-450); RBC Distribution Width 14.8 % (11.5-14.5); Red Blood Cell (RBC) Count 3.45 10x6/uL (4.32-5.72); White Blood Cell (WBC) Count 13.9 10x3/uL (3.5-10.5)
[2023-01-25 06:12] LABS: Microcytosis SLIGHT = 6-15 cells (100X) (0-5/hpf); Platelet Adequacy Comment Appears Increased
[2023-01-25] MEDS: Lantus 1000 UNITS/10 ML VIAL SC SCH ×2 (11:38→22:22)
[2023-01-25] MEDS: Ferrous Sulfate 325 MG TAB PO SCH (11:38)
[2023-01-25] MEDS: Acetaminophen 500 MG TAB PO SCH ×4 (11:39→21:07)
[2023-01-25] MEDS: Famotidine 20 MG TAB PO SCH ×2 (11:39→21:08)
[2023-01-25] MEDS: Aspirin 81 mg Enteric Coated Tablet PO SCH (11:39)
[2023-01-25] MEDS: Clopidogrel Bisulfate 75 MG TAB PO SCH (11:39)
[2023-01-25] MEDS: Triple Antibiotic Ointment 30 GM TUBE TOP SCH (11:40)
[2023-01-25] MEDS: Gabapentin 300 MG CAP PO SCH ×4 (11:40→21:07)
[2023-01-25] MEDS: Sodium Chloride 0.9% 1,000 ML IV SCH (11:52)
[2023-01-25] MEDS ORDERED: PROPOFOL 40 ML ONE (14:02)
[2023-01-25] MEDS ORDERED: Lidocaine 1% PF 5 ML VIAL ONE (14:02)
[2023-01-25] MEDS: cefTRIAXone\\ROCEPHIN 2 GM in Sodium Chloride 0.9% 100 ML IVPB SCH (15:33)
[2023-01-25] MEDS ORDERED: GoLYTELY 4,000 ml Bottle PO SCH (20:00)
[2023-01-25] MEDS: Tamsulosin HCl 0.4 MG CAP PO SCH (21:08)
[2023-01-26 04:01] LABS: #Basophils 0.1 10x3/uL (0.0-0.2); #Eosinphils 0.2 10x3/uL (0.0-0.5); #Monocytes 0.8 10x3/uL (0.0-1.1); #Neutrophils 6.9 10x3/uL (1.5-8.4); %Basophils 0.7 % (0.0-2.0); %Eosinophils 1.6 % (0.0-6.0); %Lymphocytes 24.6 % (18.0-47.0); %Monocytes 7.4 % (0.0-10.0); %Neutrophils 64.9 % (40.0-75.0); Hemoglobin 8.3 g/dL (13.5-17.5); Mean Corpuscular HGB CONC 32.7 g/dL (32.0-36.0); Mean Corpuscular Hemoglobin 27.1 pg (27.0-33.0); Mean Platelet Volume 8.3 fl (7.4-10.4); Platelet Count 725 10x3/uL (150-450); Red Blood Cell (RBC) Count 3.06 10x6/uL (4.32-5.72); White Blood Cell (WBC) Count 10.6 10x3/uL (3.5-10.5)
[2023-01-26 04:39] LABS: Platelet Adequacy Comment Appears Increased
[2023-01-26 04:40] LABS: Microcytosis SLIGHT = 6-15 cells (100X) (0-5/hpf)
[2023-01-26] MEDS: ALPRAZolam 0.25 MG TAB PO PRN (08:11)
[2023-01-26] MEDS: Ferrous Sulfate 325 MG TAB PO SCH (08:12)
[2023-01-26] MEDS: Morphine 2 MG/ML VIAL SLOW IVP PRN (08:12)
[2023-01-26] MEDS: Aspirin 81 mg Enteric Coated Tablet PO SCH (08:12)
[2023-01-26] MEDS: Famotidine 20 MG TAB PO SCH (08:17)
[2023-01-26] MEDS: Clopidogrel Bisulfate 75 MG TAB PO SCH (08:17)
[2023-01-26] MEDS: Acetaminophen 500 MG TAB PO SCH ×3 (08:17→18:10)
[2023-01-26] MEDS: Gabapentin 300 MG CAP PO SCH ×2 (08:18→14:18)
[2023-01-26] MEDS: traMADol HCl 50 MG TAB PO PRN (10:35)
[2023-01-26] MEDS: Lantus 1000 UNITS/10 ML VIAL SC SCH (10:45)
[2023-01-26] MEDS: Triple Antibiotic Ointment 30 GM TUBE TOP SCH (11:40)
[2023-01-26] MEDS ORDERED: PROPOFOL 60 ML ONE (12:26)
[2023-01-26] MEDS: cefTRIAXone\\ROCEPHIN 2 GM in Sodium Chloride 0.9% 100 ML IVPB SCH (14:17)
[2023-01-26] MEDS: Sodium Chloride 0.9% 1,000 ML IV SCH (14:19)
[2023-01-26 21:48] VITALS: BP 143/67; TEMP 98.5
== END 2023-01-26 21:00 | disposition short-term general hospital (02) | DRG 853 ==
LOC: CSHERS 18:59 → CSHERHOLD 20:42 → CSHTELE 01-15 19:22
PROVIDERS: ADMIT Internal Medicine; ATTEND Internal Medicine
PROC: 3E03329 Introduction of Other Anti-infective into Peripheral Vein, Percutaneous Approach (ICD-10-PCS; 2023-01-14)
PROC: 047U3ZZ Dilation of Left Peroneal Artery, Percutaneous Approach (ICD-10-PCS; principal; 2023-01-20)
PROC: 047N3ZZ Dilation of Left Popliteal Artery, Percutaneous Approach (ICD-10-PCS; 2023-01-20)
PROC: 047Q3ZZ Dilation of Left Anterior Tibial Artery, Percutaneous Approach (ICD-10-PCS; 2023-01-20)
PROC: 047L3EZ Dilation of Left Femoral Artery with Two Intraluminal Devices, Percutaneous Approach (ICD-10-PCS; 2023-01-20)
PROC: B4101ZZ Fluoroscopy of Abdominal Aorta using Low Osmolar Contrast (ICD-10-PCS; 2023-01-20)
PROC: B41G1ZZ Fluoroscopy of Left Lower Extremity Arteries using Low Osmolar Contrast (ICD-10-PCS; 2023-01-20)
PROC: B41J1ZZ Fluoroscopy of Other Lower Arteries using Low Osmolar Contrast (ICD-10-PCS; 2023-01-20)
PROC: 0Y6J0Z3 Detachment at Left Lower Leg, Low, Open Approach (ICD-10-PCS; 2023-01-22)
PROC: 30233N1 Transfusion of Nonautologous Red Blood Cells into Peripheral Vein, Percutaneous Approach (ICD-10-PCS; 2023-01-22)
PROC: 0DB98ZX Excision of Duodenum, Via Natural or Artificial Opening Endoscopic, Diagnostic (ICD-10-PCS; 2023-01-25)
PROC: 0DJD8ZZ Inspection of Lower Intestinal Tract, Via Natural or Artificial Opening Endoscopic (ICD-10-PCS; 2023-01-25)
DX: A40.1 Sepsis due to streptococcus, group B (principal); G93.41 Metabolic encephalopathy; N17.9 Acute kidney failure, unspecified; L97.919 Non-pressure chronic ulcer of unspecified part of right lower leg with unspecified severity; L03.115 Cellulitis of right lower limb; M86.8X7 Other osteomyelitis, ankle and foot; E11.52 Type 2 diabetes mellitus with diabetic peripheral angiopathy with gangrene; E87.1 Hypo-osmolality and hyponatremia; K22.10 Ulcer of esophagus without bleeding; E78.00 Pure hypercholesterolemia, unspecified; M19.90 Unspecified osteoarthritis, unspecified site; I12.9 Hypertensive chronic kidney disease with stage 1 through stage 4 chronic kidney disease, or unspecified chronic kidney disease; E11.22 Type 2 diabetes mellitus with diabetic chronic kidney disease; N18.9 Chronic kidney disease, unspecified; E83.42 Hypomagnesemia; E87.6 Hypokalemia; E11.621 Type 2 diabetes mellitus with foot ulcer; F17.210 Nicotine dependence, cigarettes, uncomplicated; F44.4 Conversion disorder with motor symptom or deficit; G89.29 Other chronic pain; L97.529 Non-pressure chronic ulcer of other part of left foot with unspecified severity; D50.9 Iron deficiency anemia, unspecified; E11.69 Type 2 diabetes mellitus with other specified complication; I70.202 Unspecified atherosclerosis of native arteries of extremities, left leg; E11.40 Type 2 diabetes mellitus with diabetic neuropathy, unspecified; M25.511 Pain in right shoulder; K44.9 Diaphragmatic hernia without obstruction or gangrene
CPT/HCPCS: 36415; 36416; 36430; 37226; 37228; 37232; 71045; 71275; 75635; 75710; 75736; 80048; 80053; 80061; 80202; 81001; 83036; 83540; 83550; 83605; 83735; 84100; 85025; 85347; 86850; 86900; 86901; 87040; 87077; 87149; 87186; 88305; 88307; 88311; 93005; 93010; 93306; 93923; 96365; 96366; 96368; 97139; 99152; 99153; A9579; C1725; C1760; C1769; C1876; C1887; C1894; J0360; J0692; J0696; J1100; J1170; J1644; J1650; J1815; J1885; J2001; J2175; J2250; J2270; J2272; J2370; J2405; J2704; J2916; J3010; J3370; J3475; J3490; J7050; J7120; P9016; Q9967

== ENCOUNTER 2023-07-22 10:02 | Outpatient (CLI) | payer MEDICARE, MEDICAID | END 2023-07-22 10:03 | disposition home or self-care (01) | LOC: CSHMRI 10:02 | PROVIDERS: ATTEND Family Medicine | DX: M47.26 Other spondylosis with radiculopathy, lumbar region (principal); M25.552 Pain in left hip; M25.852 Other specified joint disorders, left hip | CPT/HCPCS: 72100; 72148 ==

== ENCOUNTER 2023-07-29 20:54 | Emergency (ER) | payer MEDICARE, MEDICAID ==
[2023-07-29] MEDS ORDERED: HYDROcodone/Acetaminophen 5/325 mg Tablet ONE (22:01)
== END 2023-07-29 23:57 | disposition home or self-care (01) ==
LOC: CSHERS 20:54
DX: M25.511 Pain in right shoulder (principal); J44.9 Chronic obstructive pulmonary disease, unspecified; N18.9 Chronic kidney disease, unspecified; K21.9 Gastro-esophageal reflux disease without esophagitis; E11.22 Type 2 diabetes mellitus with diabetic chronic kidney disease; F17.210 Nicotine dependence, cigarettes, uncomplicated; Z79.82 Long term (current) use of aspirin; Z79.4 Long term (current) use of insulin; Z79.01 Long term (current) use of anticoagulants
CPT/HCPCS: 99283

== ENCOUNTER 2024-03-13 08:46 | Outpatient (CLI) | payer MEDICARE, OTHER | END 2024-03-13 08:47 | disposition home or self-care (01) | LOC: CSHWCC 08:46 | PROVIDERS: ATTEND Nurse Practitioner Family | DX: E11.621 Type 2 diabetes mellitus with foot ulcer (principal); L97.512 Non-pressure chronic ulcer of other part of right foot with fat layer exposed; E11.622 Type 2 diabetes mellitus with other skin ulcer; L97.312 Non-pressure chronic ulcer of right ankle with fat layer exposed; E11.22 Type 2 diabetes mellitus with diabetic chronic kidney disease; N18.9 Chronic kidney disease, unspecified; I50.22 Chronic systolic (congestive) heart failure; E11.51 Type 2 diabetes mellitus with diabetic peripheral angiopathy without gangrene; Z72.0 Tobacco use | CPT/HCPCS: 97597; 99213; G0463 ==

== ENCOUNTER 2024-04-05 14:52 | Outpatient (CLI) | payer MEDICARE, OTHER | END 2024-04-05 14:53 | disposition home or self-care (01) | LOC: CSHWCC 14:52 | PROVIDERS: ATTEND Nurse Practitioner Family | DX: E11.621 Type 2 diabetes mellitus with foot ulcer (principal); E11.622 Type 2 diabetes mellitus with other skin ulcer; E11.22 Type 2 diabetes mellitus with diabetic chronic kidney disease; L97.312 Non-pressure chronic ulcer of right ankle with fat layer exposed; L97.512 Non-pressure chronic ulcer of other part of right foot with fat layer exposed; I50.22 Chronic systolic (congestive) heart failure; I73.9 Peripheral vascular disease, unspecified; N18.9 Chronic kidney disease, unspecified; Z72.0 Tobacco use | CPT/HCPCS: 97597; 97598 ==

== ENCOUNTER 2024-04-12 13:09 | Outpatient (CLI) | payer MEDICARE, OTHER | END 2024-04-12 13:10 | disposition home or self-care (01) | LOC: CSHWCC 13:09 | PROVIDERS: ATTEND Nurse Practitioner Family | DX: E11.621 Type 2 diabetes mellitus with foot ulcer (principal); E11.622 Type 2 diabetes mellitus with other skin ulcer; E11.22 Type 2 diabetes mellitus with diabetic chronic kidney disease; L97.312 Non-pressure chronic ulcer of right ankle with fat layer exposed; L97.512 Non-pressure chronic ulcer of other part of right foot with fat layer exposed; I50.22 Chronic systolic (congestive) heart failure; I73.9 Peripheral vascular disease, unspecified; N18.9 Chronic kidney disease, unspecified; Z72.0 Tobacco use | CPT/HCPCS: 97597 ==